=== PATIENT | female | born 1990 | race Caucasian/White ===

== ENCOUNTER 2018-08-22 23:12 | Emergency (ER) | payer OTHER, SELFPAY ==
[2018-08-22 23:13] VITALS: BP 124/83; PULSE 102; RESP 18; TEMP 36.9; O2SAT 96; BMI 27.7
--- NOTE | 2018-08-22 23:25 | ED.VISSUMM ---
- ER Visit Summary Date of Service: 08/22/18 Chief Complaint: coccyx abscess History of Present Illness: The patient is a 28 F who presents for 3 days of pain in the coccyx region, with concern for abscess. Patient states she has severe pain with walking, sitting or moving at all. No fever. She noted drainage from the site today. She is placed skin protectant cream on it. She denies any history of prior abscess at this site. Physical Examination: Is well-nourished well-developed sitting in bed, afebrile and hemodynamically stable. Examination of the superior gluteal cleft shows diffuse area of erythema with fluctuance, extending to both sides of the cleft. Very tender to palpation. Remainder of exam unremarkable. Test Results: [] Emergency Department Course and Treatment: Patient's examination is consistent with a pilonidal cyst with overlying cellulitis. No active drainage is noted. Outside ultrasound was used, and a large abscess cavity was identified in the midline. Patient was given [place]ner for pain. Incision and drainage performed. Area was cleansed with Betadine. 6 cc of 1% lidocaine without epinephrine were locally infiltrated to create a field block. After anesthesia achieved, a stab incision was made in the midline area of maximum fluctuance. Copious amounts of purulent drainage was expressed. Loculations were broken with curved hemostats. The area was flushed with sterile saline. A wick was placed to help keep the incision open. Patient was given care instructions and return precautions. She was given a referral to a surgeon in case of recurrence. Because she had surrounding cellulitic changes of the skin, she was started on antibiotics for cellulitis. She was given a small prescription of Telferner to help with pain. Patient discharged home with a work note. Treatment Plan: [] Disposition: [] Impression: Infected pilonidal cyst with abscess and cellulitis, status post incision and drainage This note was generated with [employer] dictation software. It may contain incorrect words, spelling, and punctuation that were not noted in review of the chart prior to signing ED Disposition - Plan for ED Patient: Disposition: Home or Assisted Living Chief Complaint: Abscess Instructions: ED Cyst Pilonidal Infected IandD Prescriptions: Hydrocodone Bitart/Apap 5-325 [[place] 5MG-325MG] 1 tab PO Q6H PRN PRN 3 Days #10 tab PRN Reason: Pain Cephalexin [Keflex] 500 mg PO Q6 #28 cap Smz/Tmp Ds [Bactrim Ds] 1 tab PO BID #14 tab Referrals: Corwin Cameron MD [STAFF PHYSICIAN] - 10-14 Days if not better Care Physician,No Primary [Primary Care Provider] - Additional Instructions: Take the antibiotics exactly as prescribed, and take the entire week even if you feel better before it is done. Follow-up with surgery to have recurrence of the cyst. If you have any worsening of your condition or any new concerning symptoms, please return immediately to the emergency department for another evaluation.
[2018-08-22] MEDS: HYDROcodone Bitartrate/Apap 5/325 Tablet PO (23:28)
--- NOTE | 2018-08-23 00:04 | ED.DCSUM_ITS ---
- ER Visit Summary Date of Service: 08/22/18 Chief Complaint: coccyx abscess History of Present Illness: The patient is a 28 F who presents for 3 days of pain in the coccyx region, with concern for abscess. Patient states she has severe pain with walking, sitting or moving at all. No fever. She noted catalina inage from the site today. She is placed skin protectant cream on it. She denies any history of prior abscess at this site. Physical Examination: Is well-nourished well-developed sitting in bed, afebrile and hemodynamically stable. Examination of the superior gluteal cleft shows diffuse area of erythema with fluctuance, extending to both sides of the cleft. Very tender to palpation. Remainder of exam unremarkable. Test Results: [] Emergency Department Course and Treatment: Patient's examination is consistent with a pilonidal cyst with overlying cellulitis. No active drainage is noted. Outside ultrasound was used, and a large abscess cavity was identified in the midline. Patient was given [place] for pain. Incision and drainage performed. Area was cleansed with Betadine. 6 cc of 1% lidocaine without epinephrine were locally infiltrated to create a field block. After anesthesia achieved, a stab incision was made in the midline area of maximum fluctuance. Copious amounts of purulent drainage was expressed. Loculations were broken with curved hemostats. The area was flushed with sterile saline. A wick was placed to help keep the incision open. Patient was given care instructions and return precautions. She was given a referral to a surgeon in case of recurrence. Because she had surrounding cellulitic changes of the skin, she was started on antibiotics for cellulitis. She was given a small prescription of [place] to help with pain. Patient discharged home with a work note. Treatment Plan: [] Disposition: [] Impression: Infected pilonidal cyst with abscess and cellulitis, status post incision and drainage This note was generated with [employer] dictation software. It may contain incorrect words, spelling, and punctuation that were not noted in review of the chart prior to signing ED Disposition - Plan for ED Patient: Disposition: Home or Assisted Living Chief Complaint: Abscess Instructions: ED Cyst Pilonidal Infected IandD Prescriptions: Hydrocodone Bitart/Apap 5-325 [[place] 5MG-325MG] 1 tab PO Q6H PRN PRN 3 Days #10 tab PRN Reason: Pain Cephalexin [Keflex] 500 mg PO Q6 #28 cap Smz/Tmp Ds [Bactrim Ds] 1 tab PO BID #14 tab Referrals: Corwin Cameron MD [STAFF PHYSICIAN] - 10-14 Days if not better Care Physician,No Primary [Primary Care Provider] - Additional Instructions: Take the antibiotics exactly as prescribed, and take the entire week even if you feel better before it is done. Follow-up with surgery to have recurrence of the cyst. If you have any worsening of your condition or any new concerning symptoms, please return immediately to the emergency department for another evaluation.
--- NOTE | 2018-08-23 00:08 | ED.DEP ---
ED Disposition - Plan for ED Patient: Disposition: Home or Assisted Living Chief Complaint: Abscess Instructions: ED Cyst Pilonidal Infected IandD Prescriptions: Hydrocodone Bitart/Apap 5-325 [[place] 5MG-325MG] 1 tab PO Q6H PRN PRN 3 Days #10 tab PRN Reason: Pain Cephalexin [Keflex] 500 mg PO Q6 #28 cap Smz/Tmp Ds [Bactrim Ds] 1 tab PO BID #14 tab Referrals: Care Physician,No Primary [Primary Care Provider] - Corwin Cameron MD [STAFF PHYSICIAN] - 10-14 Days if not better Additional Instructions: Take the antibiotics exactly as prescribed, and take the entire week even if you feel better before it is done. Follow-up with surgery to have recurrence of the cyst. If you have any worsening of your condition or any new concerning symptoms, please return immediately to the emergency department for another evaluation.
== END 2018-08-23 00:34 | disposition home or self-care (01) ==
PROVIDERS: Emergency Provider Emergency Medicine
DX: L05.01 Pilonidal cyst with abscess (principal); L03.317 Cellulitis of buttock
CPT/HCPCS: 10080; 99283

== ENCOUNTER 2018-09-18 16:12 | Emergency (ER) | payer SELFPAY ==
[2018-09-18 16:14] VITALS: BP 129/73; PULSE 76; RESP 17; TEMP 36.4; O2SAT 99; BMI 24.2
--- NOTE | 2018-09-18 16:47 | ED.VISSUMM ---
- ER Visit Summary Date of Service: 09/18/18 Chief Complaint: Abscess History of Present Illness: The patient is a 28 F presenting secondary to an abscess. Patient has a history of a pilonidal cyst being drained about a month ago. States that she has had recurrence over the course of the last week. Pain in the area is mild to moderate no fevers she does not believe that she has any active draining. Physical Examination: Physical exam shows a pilonidal abscess at the top of the patient's gluteal cleft. Minimal overlying erythema. Remainder of the physical otherwise unremarkable. Test Results: None indicated Emergency Department Course and Treatment: Patient presented with pilonidal abscess. Area was cleaned with rubbing alcohol, and then was anesthetized using a field block via total of 8 cc of 1% lidocaine. 11 blade was used, and approximately a centimeter and a half linear incision was made. Copious purulent foul-smelling drainage was expressed, loculations were broken with curved hemostats, wound was irrigated under pressure with saline. It was then packed with 1/4 inch iodoform gauze. Patient tolerated this well. Patient already has a follow-up appointment with Dr. Gillespie. She was encouraged to keep that on Friday and follow-up as previously scheduled. Disposition: Discharge Impression: 1. Pilonidal abscess 2. Incision and drainage This note was generated with [employer] dictation software. It may contain incorrect words, spelling, and punctuation that were not noted in review of the chart prior to signing ED Disposition - Plan for ED Patient: Disposition: Home or Assisted Living Chief Complaint: Abscess Diagnosis: Pilonidal abscess Instructions: ED Abscess IandD Referrals: Corwin Cameron MD [STAFF PHYSICIAN] - Keep Jody appointment
[2018-09-18 17:07] VITALS: RESP 18
== END 2018-09-18 17:09 | disposition home or self-care (01) ==
PROVIDERS: Emergency Provider Emergency Medicine
DX: L05.01 Pilonidal cyst with abscess (principal)
CPT/HCPCS: 10080; 10060; 99282

== ENCOUNTER 2018-10-25 16:05 | Emergency (ER) | payer SELFPAY ==
[2018-10-25 16:06] VITALS: BP 120/70; PULSE 81; RESP 16; TEMP 36.7; O2SAT 98; BMI 30.9
--- NOTE | 2018-10-25 16:32 | ED.DCSUM_ITS ---
- ER Visit Summary Date of Service: 10/25/18 Chief Complaint: Pilonidal cyst History of Present Illness: The patient is a 28 F who presents with a pilonidal cyst. She has had it for 1 week. She states it drained once and now is bigger. She denies fevers. She was given a surgery referral at one point but has not done it yet. She had an insurance lapse. She was to follow-up with Dr. Gillespie. Physical Examination: Vital signs are reviewed. Skin exam reveals a pilonidal cyst at the gluteal cleft. It is mildly erythematous. It measures 1.5 x 1.5 cm. The rest of her exam is unremarkable. See T-sheet for details Test Results: None performed Emergency Department Course and Treatment: The patient had an incision and drainage. Patient was given 3 cc of local lidocaine at the gluteal cleft. A cruciate incision was made. There is a moderate amount of purulence. Patient tolerated this well. I will place her on Bactrim for 7 days. She will follow- up with Dr. Gillespie. Treatment Plan: [] Disposition: Discharge Impression: Infected pilonidal cyst I&D by ED physician This note was generated with [employer] dictation software. It may contain incorrect words, spelling, and punctuation that were not noted in review of the chart prior to signing ED Disposition - Plan for ED Patient: Chief Complaint: Abscess Referrals: Care Physician,No Primary [Primary Care Provider] -
--- NOTE | 2018-10-25 16:32 | ED.DEP ---
ED Disposition - Plan for ED Patient: Disposition: Home or Assisted Living Chief Complaint: Abscess Instructions: ED Abscess IandD Prescriptions: Smz/Tmp Ds [Bactrim Ds] 1 tab PO BID #14 tab Referrals: Care Physician,No Primary [Primary Care Provider] - Corwin Cameron MD [STAFF PHYSICIAN] -
[2018-10-25] MEDS: Smz/Tmp Ds Tablet 1 TABLET PO (16:43)
== END 2018-10-25 16:56 | disposition home or self-care (01) ==
LOC: ED 16:42
PROVIDERS: Emergency Provider Emergency Medicine
DX: L05.91 Pilonidal cyst without abscess (principal); Z72.0 Tobacco use
CPT/HCPCS: 10080; 99283

== ENCOUNTER 2019-05-20 16:19 | Emergency (ER) | payer BC, SELFPAY ==
[2019-05-20 16:19] VITALS: BP 128/72; PULSE 107; RESP 16; TEMP 37.1; O2SAT 98; BMI 29.2
--- NOTE | 2019-05-20 16:31 | ED.VIS.GEN ---
History of Present Illness Chief Complaint: Abscess Informant: Patient Onset: Days Context: Sudden Onset Timing: Continuous Quality: Pain Location: Superior gluteal crease Current Severity: Mild Maximum Severity: Moderate Worsened by: Sitting Relieved by: Nothing Associated Symptoms: No associated symptoms Narrative: Patient is a 29-year-old who has history of infected pilonidal cyst who presents because of recurrent bilateral cyst. She has an appointment see Dr. Corwin Cameron in 1 month. She denies fever, chills or night sweats. Denies history of rheumatic fever, murmur, SBE, IV drug use or being immune suppressed. She does report allergy to amoxicillin which is a significant IgE reaction. Patient states she ate less than 1 hour ago. She does have a ride home. Prior similar symptoms: Yes Recent Illness/Hospitalization: Yes - Past Medical History (1) History of pilonidal cyst Status: Acute Past Medical History - Allergies and Home Meds Allergies/Adverse Reactions: Allergies amoxicillin Allergy (Verified 05/20/19 16:22) Hives codeine Allergy (Verified 05/20/19 16:22) Hives Primary Care Physician: Nva Rhodes MD [Primary Care Provider] - Prior records reviewed: Yes Surgical History: appendectomy Lives: Alone Smoking Status: Current every day smoker Alcohol: Rare Review of Systems General: Denies: Chills, Fever, Malaise, Subjective, Sweats Cardiovascular: Denies: Chest pain, Palpitations Respiratory: Denies: Dyspnea, Cough, Dyspnea on exertion Gastrointestinal: Denies: Abdominal pain, Nausea, Vomiting, Diarrhea, Melena, Hematochezia Musculoskeletal: Denies: Myalgias, Arthralgias, Neck pain, Back pain, Extremity Pain Skin: Reports: Rash, Abscess. Denies: Abrasions, Wounds Neurological: Denies: Headache, Weakness, Numbness Hematologic: Denies: Easy bruising, Easy bleeding, Lymphadenopathy, -, - Allergy: Reports: Uticaria, Swelling of the mouth Physical Exam Vital Signs/Narrative: Vital Signs Temp Pulse Resp BP Pulse Ox 05/20/19 16:19 98.8 F 107 H 16 128/72 H 98 Inital Vital Signs reviewed: Yes General: Well nourished, Well developed, No Acute Distress Head: Normocephalic, Atraumatic Eyes: Perrl, EOMI. Negative for: Pale conjunctiva, Scleral icterus, - ENT: Moist mucous membranes, No rhinorrhea Cardiovascular: Regular rate, Regular rhythm, No murmurs Respiratory: No distress, CTA bilaterally, Chest nontender Back: Nontender, Normal Inspection Extremities: Nontender, No edema Skin: Normal color, Rash - Erythema secondary to infected pilonidal cyst Neurological: Alert, Oriented x3, Cranial nerves II-XII grossly intact, Normal Strength, Normal Sensation Psychological: Normal affect, Normal Mood Diagnostic/Tx/Re-eval - Medical Decision Making Patient has an infected pilonidal cyst which would require incision and drainage. Since patient ate 1 hour prior to presentation will anesthetized with 1% lidocaine by local infiltration and field block. Please read procedure note. Since she has an IgE response to amoxicillin we will treat with clindamycin for gram-positive, gram-negative anaerobic coverage. Procedures Procedure(s): Shunt was consented for I&D. The was not administered any IV meds and she ate 1 hour prior. Patient was prepped draped sterile manner. There is no styes for local infiltration field block. Incision was made with brown-green purulent drainage that flowed freely from the incised area. Blunt dissection was undertaken. Loculations were broken up. Cavity was irrigated. Wick was placed. She received a dose of oral opiate analgesia for her discomfort. ED Disposition - Plan for ED Patient: Disposition: Home or Assisted Living Diagnosis: Infected pilonidal cyst Instructions: ABSCESS, Incision and Drainage Prescriptions: Clindamycin HCl [Cleocin] 300 mg PO Q6H #28 cap Transmission Status: Sent to [id number] Oxycodone HCl/Acetaminophen [Percocet 5/325] 1 tab PO Q6H PRN PRN 3 Days #12 tab PRN Reason: Pain Transmission Status: Received by [id number] Referrals: Nav Rhodes MD [Primary Care Provider] - Corwin Cameron MD [STAFF PHYSICIAN] - 2 Days for wound check Additional Instructions: Your prescription was electronically transmitted to [facility] located [facility]
[2019-05-20] MEDS: Clindamycin HCl 150 MG Capsule 300 MG PO (16:48)
[2019-05-20] MEDS: oxyCODONE 5 MG Tablet PO (17:10)
[2019-05-20] MEDS: Naproxen 250 MG Tablet 500 MG PO (17:10)
== END 2019-05-20 17:37 | disposition home or self-care (01) ==
PROVIDERS: Emergency Provider Emergency Medicine; Family Provider Family Medicine; PCP Family Medicine
DX: L05.91 Pilonidal cyst without abscess (principal); Z88.0 Allergy status to penicillin; F17.200 Nicotine dependence, unspecified, uncomplicated
CPT/HCPCS: 10060; 99283